=== PATIENT | female | born 1955 | race Caucasian/White ===

== ENCOUNTER 2017-11-07 20:44 | Emergency (ER) | payer MEDICARE, OTHER, MEDICAID ==
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
--- NOTE | 2017-11-07 21:08 | RADIOLOGY REPORT (SQ) ---
EXAM DESCRIPTION: CHEST SINGLE VIEW COMPLETED DATE/TIME: 11/07/2017 9:00 pm REASON FOR STUDY: cp COMPARISON: 02/03/2016 EXAM PARAMETERS: NUMBER OF VIEWS: One view. TECHNIQUE: Single frontal radiographic view of the chest acquired. RADIATION DOSE: NA LIMITATIONS: None. FINDINGS: LUNGS AND PLEURA: There small area of opacification in the left base that minimally blurs the left hemidiaphragm laterally. MEDIASTINUM AND HILAR STRUCTURES: No masses. Contour normal. HEART AND VASCULAR STRUCTURES: Heart size is borderline. No pulmonary edema. BONES: No acute findings. HARDWARE: Pacemaker/defibrillator. Sternotomy wires. OTHER: No other significant finding. IMPRESSION: Borderline cardiomegaly without failure. Cannot exclude very limited left lower lobe pn eumonia. TECHNICAL DOCUMENTATION: JOB ID: [id number] [email or web address]- All Rights Reserved Reading location - IP/workstation name: [email or web address]
--- NOTE | 2017-11-07 21:22 | EKG REPORT ---
SEVERITY:- ABNORMAL ECG - ATRIAL-SENSED VENTRICULAR-PACED RHYTHM : Confirmed by: Rebeca Means MD 07-Nov-2017 21:22:27
[2017-11-07 21:37] LABS: ABSOLUTE BASOPHILS # (AUTO) 0.1 10^3/uL (0.0-0.2); ABSOLUTE EOSINOPHILS # (AUTO) 0.3 10^3/uL (0.0-0.6); ABSOLUTE LYMPHOCYTES (AUTO) 2.6 10^3/uL (0.5-4.7); ABSOLUTE MONOCYTES (AUTO) 0.5 10^3/uL (0.1-1.4); ABSOLUTE NEUT (AUTO) 3.8 10^3/uL (1.7-8.2); BASOPHILS % (AUTO) 0.8 % (0-2); EOSINOPHILS % (AUTO) 3.8 % (0-6); HEMATOCRIT 44.1 % (36.0-47.0); HEMOGLOBIN 14.8 g/dL (12.0-15.5); LYMPHOCYTES % (AUTO) 36.4 % (13-45); MEAN CORPUSCULAR HEMOGLOBIN 28.4 pg (27.0-33.4); MEAN CORPUSCULAR HGB CONC 33.5 g/dL (32.0-36.0); MEAN CORPUSCULAR VOLUME 85 fl (80-97); MONOCYTES % (AUTO) 6.8 % (3-13); PLATELET COUNT 234 10^3/uL (150-450); RED CELL DISTRIBUTION WIDTH 14.1 % (11.5-14.0); SEGMENTED NEUTROPHILS % (AUTO) 52.2 % (42-78); TOTAL CELLS COUNTED % (AUTO) 100 %; WHITE BLOOD COUNT 7.2 10^3/uL (4.0-10.5)
[2017-11-07 22:03] LABS: ALANINE AMINOTRANSFERASE 25 U/L (9-52); ALBUMIN 3.9 g/dL (3.5-5.0); ALKALINE PHOSPHATASE 86 U/L (38-126); ANION GAP 11 (5-19); ASPARTATE AMINO TRANSFERASE 16 U/L (14-36); BILIRUBIN,DIRECT 0.2 mg/dL (0.0-0.4); BILIRUBIN,TOTAL 0.3 mg/dL (0.2-1.3); BLOOD UREA NITROGEN 18 mg/dL (7-20); CALCIUM 9.2 mg/dL (8.4-10.2); CARBON DIOXIDE 21 mmol/L (22-30); CHLORIDE 110 mmol/L (98-107); CREATINE KINASE 54 U/L (30-135); GLUCOSE 102 mg/dL (75-110); POTASSIUM 4.4 mmol/L (3.6-5.0); TOTAL PROTEIN 6.8 g/dL (6.3-8.2)
[2017-11-07 22:13] LABS: CREATINE KINASE MB 1.33 ng/mL (<4.55)
[2017-11-07 22:14] LABS: TROPONIN I < 0.012 ng/mL
[2017-11-08 03:27] VITALS: BP 126/68
== END 2017-11-08 03:25 | disposition home or self-care (01) ==
LOC: ER 20:44
DX: S20.219A Contusion of unspecified front wall of thorax, initial encounter (principal); R07.9 Chest pain, unspecified; W50.0XXA Accidental hit or strike by another person, initial encounter; R53.82 Chronic fatigue, unspecified; F17.210 Nicotine dependence, cigarettes, uncomplicated; Z88.1 Allergy status to other antibiotic agents; I25.10 Atherosclerotic heart disease of native coronary artery without angina pectoris; I10 Essential (primary) hypertension; I25.2 Old myocardial infarction; Z95.5 Presence of coronary angioplasty implant and graft; Z95.0 Presence of cardiac pacemaker
CPT/HCPCS: 36415; 71045; 80053; 82550; 82553; 84484; 85025; 93005; 93010; 99285

== ENCOUNTER 2018-04-16 23:07 | Emergency (ER) | payer MEDICARE, OTHER, MEDICAID ==
[2018-04-16] MEDS ORDERED: ACETAMINOPHEN 325 MG TABLET PO ONE (23:26)
--- NOTE | 2018-04-17 00:04 | ER Document Report ---
ED Medical Screen (RME) - General Chief Complaint: Chest Pain Stated Complaint: CHEST PAIN Time Seen by Provider: 04/17/18 00:02 Notes: Patient is a 62-year-old female presents to the emergency department complaining of a left chest pressure while sitting down. Patient states she had has a cough and congestion for the last couple of days and initially thought it may be attributed to her having a cough but then realized she was not coughing at the time and states the pressure then moved into her left shoulder and down her left arm. This is when she presents to the emergency room. Patient denies taking any home medications for the pain. Past medical history: Pacemaker, CABG, stents, hyperlipidemia Medications: Nitroglycerin Allergies: Bacitracin, Polytrim HEART: Regular rate and rhythm. No murmur Chest: No crepitus felt, no erythema or ecchymosis noted. Chest pain does not increase upon deep palpation to or inspiration. I have greeted and performed a rapid initial assessment of this patient. A comprehensive ED assessment and evaluation of the patient, analysis of test results and completion of the medical decision making process will be conducted by additional ED providers. TRAVEL OUTSIDE OF THE [place] IN LAST 30 DAYS: No - Related Data Allergies/Adverse Reactions: bacitracin [From Neosporin] Allergy (Mild, Verified 03/13/16 07:33) Generalized rash neomycin sulfate [From Neosporin] Allergy (Mild, Verified 03/13/16 07:33) Generalized rash polymyxin B [From Neosporin] Allergy (Mild, Verified 03/13/16 07:33) Generalized rash Past Medical History - Past Medical History Cardiac Medical History: Reports: Hx Coronary Artery Disease, Hx Heart Attack, Hx Hypercholesterolemia, Hx Hypertension Denies: Hx Atrial Fibrillation, Hx Congestive Heart Failure, Hx Peripheral Vascular Disease, Hx Heart Murmur Pulmonary Medical History: Denies: Hx Asthma, Hx Bronchitis, Hx COPD, Hx Pneumonia Neurological Medical History: Denies: Hx Cerebrovascular Accident, Hx Seizures Renal/ Medical History: Denies: Hx Peritoneal Dialysis GI Medical History: Denies: Hx Crohn's Disease, Hx Gastroesophageal Reflux Disease, Hx Hiatal Hernia, Hx Irritable Bowel, Hx Liver Failure, Hx Pancreatitis , Hx Ulcer Musculoskeltal Medical History: Reports Hx Arthritis - Bilateral knees, Denies Hx Fibromyalgia, Denies Hx Multiple Sclerosis, Denies Hx Muscular Dystrophy Psychiatric Medical History: Denies: Hx Dementia Traumatic Medical History: Reports: Hx Fractures - left ankle Past Surgical History: Reports: Hx Cardiac Catheterization, Hx Cardiac Surgery - 6 stents, triple bypass, Hx Tubal Ligation. Denies: Hx Appendectomy, Hx Bowel Surgery, Hx Section, Hx Cholecystectomy, Hx Colostomy, Hx Coronary Artery Bypass Graft, Hx Gastric Bypass Surgery, Hx Herniorrhaphy, Hx Hysterectomy, Hx Mastectomy, Hx Pacemaker, Hx Tonsillectomy - Immunizations Immunizations up to date: Yes Hx Diphtheria, Pertussis, Tetanus Vaccination: No Physical Exam - Vital signs Vitals: Temp Pulse Resp BP Pulse Ox 101.7 F H 52 L 20 152/42 H 97 04/16/18 23:21 04/16/18 23:21 04/16/18 23:21 04/16/18 23:21 04/16/18 23:21 Course - Vital Signs Vital signs: Temp Pulse Resp BP Pulse Ox 101.7 F H 52 L 20 152/42 H 97 04/16/18 23:21 04/16/18 23:21 04/16/18 23:21 04/16/18 23:21 04/16/18 23:21
[2018-04-17 00:57] LABS: ABSOLUTE EOSINOPHILS # (AUTO) 0.1 10^3/uL (0.0-0.6); ABSOLUTE LYMPHOCYTES (AUTO) 1.4 10^3/uL (0.5-4.7); ABSOLUTE MONOCYTES (AUTO) 0.5 10^3/uL (0.1-1.4); ABSOLUTE NEUT (AUTO) 5.8 10^3/uL (1.7-8.2); BASOPHILS % (AUTO) 0.5 % (0-2); EOSINOPHILS % (AUTO) 1.6 % (0-6); HEMATOCRIT 43.2 % (36.0-47.0); HEMOGLOBIN 14.5 g/dL (12.0-15.5); LYMPHOCYTES % (AUTO) 18.1 % (13-45); MEAN CORPUSCULAR HEMOGLOBIN 28.5 pg (27.0-33.4); MEAN CORPUSCULAR HGB CONC 33.7 g/dL (32.0-36.0); MEAN CORPUSCULAR VOLUME 85 fl (80-97); MONOCYTES % (AUTO) 6.1 % (3-13); PLATELET COUNT 223 10^3/uL (150-450); RED BLOOD COUNT 5.11 10^6/uL (3.72-5.28); RED CELL DISTRIBUTION WIDTH 14.5 % (11.5-14.0); SEGMENTED NEUTROPHILS % (AUTO) 73.7 % (42-78); TOTAL CELLS COUNTED % (AUTO) 100 %; WHITE BLOOD COUNT 7.8 10^3/uL (4.0-10.5)
[2018-04-17 01:03] LABS: INTERNATIONAL RATION (INR) 0.93; PROTHROMBIN TIME 12.9 SEC (11.4-15.4)
[2018-04-17 01:16] LABS: ALANINE AMINOTRANSFERASE 30 U/L (9-52); ALBUMIN 4.1 g/dL (3.5-5.0); ALKALINE PHOSPHATASE 127 U/L (38-126); ANION GAP 5 (5-19); ASPARTATE AMINO TRANSFERASE 18 U/L (14-36); BILIRUBIN,DIRECT 0.2 mg/dL (0.0-0.4); BILIRUBIN,TOTAL 0.4 mg/dL (0.2-1.3); BLOOD UREA NITROGEN 12 mg/dL (7-20); CALCIUM 9.2 mg/dL (8.4-10.2); CARBON DIOXIDE 28 mmol/L (22-30); CHLORIDE 107 mmol/L (98-107); CREATINE KINASE 39 U/L (30-135); GLUCOSE 115 mg/dL (75-110); POTASSIUM 4.4 mmol/L (3.6-5.0); TOTAL PROTEIN 6.8 g/dL (6.3-8.2)
[2018-04-17 01:28] LABS: CREATINE KINASE MB 0.52 ng/mL (<4.55); TROPONIN I 0.03 ng/mL
--- NOTE | 2018-04-17 02:03 | RADIOLOGY REPORT (SQ) ---
XR CHEST 1 VIEW HISTORY: Chest pain. COMPARISON: 11/07/2017 FINDINGS: Mild cardiomegaly with stable multi lead left chest wall pacemaker. The lungs are clear. No pleural effusion or pneumothorax is identified. No acute osseous findings are seen. IMPRESSION: No acute cardiopulmonary abnormality.
[2018-04-17 05:41] LABS: APPEARANCE,URINE CLEAR; BILIRUBIN,URINE NEGATIVE (NEGATIVE); COLOR,URINE STRAW; GLUCOSE, URINE NEGATIVE (NEGATIVE); KETONES,URINE NEGATIVE (NEGATIVE); LEUKOCYTE ESTERASE,URINE NEGATIVE (NEGATIVE); NITRITE,URINE NEGATIVE (NEGATIVE); PROTEIN,URINE NEGATIVE (NEGATIVE); URINE SPECIFIC GRAVITY 1.003; UROBILINOGEN,URINE NEGATIVE mg/dL (<2.0)
--- NOTE | 2018-04-17 05:51 | ER Document Report ---
ED General - General Chief Complaint: Chest Pain Stated Complaint: CHEST PAIN Time Seen by Provider: 04/17/18 00:02 Notes: Patient is a 62-year-old female presents to the emergency department complaining of a left chest pressure while at rest. Patient states she had has a cough and congestion for the last couple of days and initially thought it may be attributed to her having a cough but then realized she was not coughing at the time and states the pressure then moved into her left shoulder and down her left arm. This is when she presents to the emergency room. Patient denies taking any home medications for the pain. Pt. stated she was recently seen at an urgent care for vomiting and diarrhea, stated that has since stopped but the URI symptoms did start 3 days ago. Past medical history: Pacemaker, CABG, stents, hyperlipidemia Medications: Nitroglycerin Allergies: Bacitracin, Polytrim TRAVEL OUTSIDE OF THE [place] IN LAST 30 DAYS: No - Related Data Allergies/Adverse Reactions: bacitracin [From Neosporin] Allergy (Mild, Verified 03/13/16 07:33) Generalized rash neomycin sulfate [From Neosporin] Allergy (Mild, Verified 03/13/16 07:33) Generalized rash polymyxin B [From Neosporin] Allergy (Mild, Verified 03/13/16 07:33) Generalized rash Past Medical History - General Information source: Patient - Social History Smoking Status: Current Every Day Smoker Frequency of alcohol use: None Family History: Other Patient has suicidal ideation: No Patient has homicidal ideation: No - Past Medical History Cardiac Medical History: Reports: Hx Coronary Artery Disease, Hx Heart Attack, Hx Hypercholesterolemia, Hx Hypertension Denies: Hx Atrial Fibrillation, Hx Congestive Heart Failure, Hx Peripheral Vascular Disease, Hx Heart Murmur Pulmonary Medical History: Denies: Hx Asthma, Hx Bronchitis, Hx COPD, Hx Pneumonia Neurological Medical History: Denies: Hx Cerebrovascular Accident, Hx Seizures Renal/ Medical History: Denies: Hx Peritoneal Dialysis GI Medical History: Denies: Hx Crohn's Disease, Hx Gastroesophageal Reflux Disease, Hx Hiatal Hernia, Hx Irritable Bowel, Hx Liver Failure, Hx Pancreatitis, Hx Ulcer Musculoskeletal Medical History: Reports Hx Arthritis - Bilateral knees, Denies Hx Fibromyalgia, Denies Hx Multiple Sclerosis, Denies Hx Muscular Dystrophy Psychiatric Medical History: Denies: Hx Dementia Traumatic Medical History: Reports: Hx Fractures - left ankle Past Surgical History: Reports: Hx Cardiac Catheterization, Hx Cardiac Surgery - 6 stents, triple bypass, Hx Tubal Ligation. Denies: Hx Appendectomy, Hx Bowel Surgery, Hx Section, Hx Cholecystectomy, Hx Colostomy, Hx Coronary Artery Bypass Graft, Hx Gastric Bypass Surgery, Hx Herniorrhaphy, Hx Hysterectomy, Hx Mastectomy, Hx Pacemaker, Hx Tonsillectomy - Immunizations Immunizations up to date: Yes Hx Diphtheria, Pertussis, Tetanus Vaccination: No Hx Pneumococcal Vaccination: 01/01/16 Review of Systems - Review of Systems Constitutional: See HPI EENT: See HPI Cardiovascular: See HPI Respiratory: See HPI Gastrointestinal: No symptoms reported Genitourinary: denies: Burning, Dysuria Female Genitourinary: No symptoms reported Musculoskeletal: See HPI Skin: No symptoms reported Hematologic/Lymphatic: No symptoms reported Neurological/Psychological: No symptoms reported Physical Exam - Vital signs Vitals: Temp Pulse Resp BP Pulse Ox 101.7 F H 52 L 20 152/42 H 97 04/16/18 23:21 04/16/18 23:21 04/16/18 23:21 04/16/18 23:21 04/16/18 23:21 - Notes Notes: GENERAL: Alert, interacts well. No acute distress. HEAD: Normocephalic, atraumatic. No frontal or maxillary sinus tenderness noted EYES: Pupils equal, round, and reactive to light. Extraocular movements intact. ENT: Oral mucosa moist, tongue midline. Nares patent, no nasal septal hematoma, TM's intact, nonerythematous, nonbulging bilaterally. Pharynx within normal limits, no palatal petechiae noted NECK: Full range of motion. Supple. Trachea midline. No lymphadenopathy appreciated LUNGS: Clear to auscultation bilaterally, no wheezes, rales, or rhonchi. No respiratory distress. HEART: Regular rate and rhythm. No murmur Chest: No crepitus felt, no erythema or ecchymosis noted anterior posterior chest wall. ABDOMEN: Soft, non-tender. Non-distended. Bowel sounds present in all 4 quadrants. EXTREMITIES: Moves all 4 extremities spontaneously. No edema, normal radial and dorsalis pedis pulses bilaterally. No cyanosis. BACK: no cervical, thoracic, lumbar midline tenderness. No saddle anesthesia, normal distal neurovascular exam. NEUROLOGICAL: Alert and oriented x3. Normal speech. cranial nerves II through XII grossly intact chest: PSYCH: Normal affect, normal mood. SKIN: Warm, dry, normal turgor. No rashes or lesions noted. Course - Re-evaluation Re-evalutation: Patient's initial and repeat EKG both showed atrial sensed ventricular paced rhythm. Patient was given Tylenol in triage for her fever. Patient was not given any other pain medications. Upon examination when patient was placed in a room she states she no longer has any chest discomfort. Continues to deny any chest pain when she takes a deep breath or coughs. Patient's labs show no signs of leukocytosis, no signs of anemia, no signs of electrolyte abnormalities. Patient's urine shows no signs of urinary tract infection, patient's chest x-ray shows no signs of pneumonia, pneumothorax, rib fracture. Patient's initial troponin was 0.030 and is down trended to 0.025. Again patient was given no nitroglycerin in the emergency department for chest pain. Patient states after Tylenol administration she no longer has any chest discomfort. Discussed this case with Dr. Marin who stated that with a down trending Trop, documented fever/URI symptoms and then CP being relieved with Tylenol there is no need for admission for chest pain rule out. Discussed with patient at length at bedside but need to follow-up with patient's primary care provider and her proofing machine operator. Patient states her proofing machine operator is Dr. Markham. States she is unsure of the last time she had a stress test or an echocardiogram but voices understanding that she needs to follow-up with cardiology as soon as possible. Patient continues without any chest discomfort, pressure or shortness of breath. Patient stable for discharge. - Vital Signs Vital signs: Temp Pulse Resp BP Pulse Ox 101.7 F H 52 L 14 129/60 H 94 04/16/18 23:21 04/16/18 23:21 04/17/18 05:00 04/17/18 04:47 04/17/18 05:00 - Laboratory Result Diagrams: 04/17/18 00:46 04/17/18 00:46 Laboratory results interpreted by me: 04/17/18 04/17/18 00:46 00:46 RDW 14.5 H Glucose 115 H Alkaline Phosphatase 127 H Discharge - Discharge Clinical Impression: Chest pain Qualifiers: Chest pain type: unspecified Qualified Code(s): R07.9 - Chest pain, unspecified Fever Qualifiers: Fever type: unspecified Qualified Code(s): R50.9 - Fever, unspecified Upper respiratory infection Qualifiers: URI type: unspecified viral URI Qualified Code(s): J06.9 - Acute upper respiratory infection, unspecified Condition: Stable Disposition: HOME, SELF-CARE Instructions: Chest Pain of Unclear Cause ([facility]), Fever ([facility]), Upper Respiratory Illness ([facility]), Viral Syndrome ([facility]) Additional Instructions: As we discussed you have been seen and treated in the emergency, fever and upper respiratory infection. Please follow-up with your primary care provider in the next 24-48 hours. Please return to the emergency room immediately should you develop chest pain again. Please also return to the emergency room for any other concerning symptoms.
[2018-04-17 06:08] VITALS: BP 143/73
--- NOTE | 2018-04-17 17:55 | EKG REPORT ---
SEVERITY:- ABNORMAL ECG - ATRIAL-SENSED VENTRICULAR-PACED RHYTHM : Confirmed by: Fina Bustillos 17-Apr-2018 17:54:41
--- NOTE | 2018-04-17 17:55 | EKG REPORT ---
SEVERITY:- ABNORMAL ECG - A-V DUAL-PACED RHYTHM WITH SOME INHIBITION : Confirmed by: Fina Bustillos 17-Apr-2018 17:54:36
== END 2018-04-17 06:08 | disposition home or self-care (01) ==
LOC: ER 23:07
DX: R07.89 Other chest pain (principal); J06.9 Acute upper respiratory infection, unspecified; R05 Cough; R50.9 Fever, unspecified; F17.200 Nicotine dependence, unspecified, uncomplicated; I25.10 Atherosclerotic heart disease of native coronary artery without angina pectoris; I25.2 Old myocardial infarction; I10 Essential (primary) hypertension; Z95.1 Presence of aortocoronary bypass graft; Z95.5 Presence of coronary angioplasty implant and graft; Z88.1 Allergy status to other antibiotic agents
CPT/HCPCS: 93005 ×2; 99284; 36415; 82553; 82550; 85025; 85610; 80053; 81001; 84484; 71045; 93010 ×2; A9270

== ENCOUNTER 2018-09-14 03:59 | Emergency (ER) | payer MEDICARE, MEDICAID ==
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
[2018-09-14 06:54] VITALS: BP 128/68
== END 2018-09-14 06:54 | disposition home or self-care (01) ==
LOC: ER 03:59
DX: R51 Headache (principal); Y09 Assault by unspecified means; Z79.02 Long term (current) use of antithrombotics/antiplatelets; F17.200 Nicotine dependence, unspecified, uncomplicated; I25.10 Atherosclerotic heart disease of native coronary artery without angina pectoris; I10 Essential (primary) hypertension
CPT/HCPCS: 70450; 99284